=== PATIENT | male | born 1945 | race Caucasian/White ===

== ENCOUNTER 2018-01-16 04:08 | Observation (INO) | payer OTHER, MEDICARE ==
[~2018-01-16] VITALS: Ht 175.3 cm; Wt 110.2 kg
[~2018-01-16 04:08] MED LIST: ASPIRIN EC325 MG PO; BACTRIM,SEPT1 TABLET PO; BISACODYL5 MG PO; CELEXA20 MG PO; CIPRO500 MG PO; COLACE100 MG PO; COUMADIN1 MG PO; DOCUSATE SODIU100 MG PO; ECOTRIN325 MG PO; ENDOCET 5-3251 EACH PO; ESCITALOPRAM OX10 MG PO; EXELON PATCH9.5 MG TD; FLOMAX0.4 MG PO; GABAPENTIN600 MG PO; HYDROCHLOROTHIA25 MG PO; HYDROCODON-ACE1 EAC7 PO; IRON325 M1 PO; IRON325 MG PO; LEXAPRO10 MG PO; LISINOPRIL30 MG PO; NAMENDA XR28 MG PO; NEURONTIN600 MG PO; OXYCODONE-ACET1 EACH PO; PERCOCET 5/31 TABLET PO; PHENAZOPYRIDIN100 MG PO; POTASSIUM CHLO10 ME4 PO; POTASSIUM CHLO20 ME2 PO; PROSCAR5 MG PO; TAMSULOSIN HCL0.4 MG PO; TUMS500 MG PO; TYLENOL REGULA325 MG PO; XANAX XR1 MG PO; XANAX0.5 MG PO; XANAX1 MG PO
[2018-01-16 04:29] LABS: HEMATOCRIT 38.7 % (38.0-50.0); HEMOGLOBIN 14.3 G/DL (12.5-16.6); MCH 32.1 PG (29.0-34.0); PLATELET COUNT 170 K/uL (156-360); RBC DIS.WIDTH-SD 38.5 % (39-53); RED BLOOD COUNT 4.45 M/uL (4.00-5.50); WHITE BLOOD COUNT 4.9 K/uL (4.1-10.2)
[2018-01-16 04:41] LABS: CHLORIDE 100 mEq/L (99-109); POTASSIUM 3.8 mEq/L (3.7-5.4); SODIUM 137 mEq/L (136-147)
[2018-01-16 04:43] LABS: GLUCOSE 205 mg/dL (70-99)
[2018-01-16 04:46] LABS: GFR ESTIMATE (CALCULATED) > 59 mL/min/ (58.99-99999)
[2018-01-16 04:47] LABS: UREA NITROGEN (BUN) 9 mg/dL (9-23)
[2018-01-16 04:50] LABS: TROP-I INTERPRETATION NEGATIVE; TROPONIN-I < 0.01 ng/mL (0.0-0.30)
[2018-01-16 04:54] LABS: ALBUMIN 4.2 g/dL (3.2-4.8)
[2018-01-16 04:57] LABS: TOTAL PROTEIN 6.8 g/dL (6.4-8.3)
[2018-01-16 04:59] LABS: TOTAL BILIRUBIN 0.6 mg/dL (0.0-1.0)
[2018-01-16 05:00] LABS: ALKALINE PHOSPHATASE 136 IU/L (3-129)
[2018-01-16 05:02] LABS: AST (GOT) 32 IU/L (2-34); DIRECT BILIRUBIN 0.2 mg/dL (0.0-0.3)
[2018-01-16 05:03] LABS: ALT (GPT) 51 IU/L (3-49); LIPASE 22 U/L (1.0-51.0)
[2018-01-16] MEDS ORDERED: OXYCODONE-APAP1 EACH PO (06:15)
[2018-01-16] MEDS ORDERED: ALPRAZOLAM1 MG PO (06:16)
[2018-01-16 07:54] VITALS: BP 173/81
[2018-01-16 11:31] VITALS: BP 141/70
[2018-01-16] MEDS ORDERED: HYDROCHLOROTHIA25 MG PO (11:34)
[2018-01-16] MEDS ORDERED: MEMANTINE HCL10 MG PO (11:35)
[2018-01-16] MEDS ORDERED: ESCITALOPRAM OX20 MG PO (11:35)
[2018-01-16] MEDS ORDERED: EXELON6 MG PO (11:36)
[2018-01-16] MEDS ORDERED: LEXAPRO20 MG PO (11:41)
[2018-01-16 11:50] LABS: TROP-I INTERPRETATION NEGATIVE; TROPONIN-I < 0.01 ng/mL (0.0-0.30)
[2018-01-16 11:53] LABS: HDL CHOLESTEROL 29 MG/DL (Desirable>=40); LDL CHOLESTEROL 103 mg/dL (Desirable<100); NON-HDL CHOLESTEROL 161 mg/dL (Desirable<160); TOTAL CHOLESTEROL 190 mg/dL (Desirable<200); TRIGLYCERIDES 289 MG/DL (Normal: <150)
[2018-01-16] MEDS ORDERED: AUGMENTIN875 MG PO (14:10)
[2018-01-16] MEDS ORDERED: PROTONIX40 MG PO (14:10)
[2018-01-16 17:07] VITALS: BP 136/67
[2018-01-16 17:27] LABS: TROP-I INTERPRETATION NEGATIVE; TROPONIN-I < 0.01 ng/mL (0.0-0.30)
[2018-01-17 10:28] LABS: HEMOGLOBIN A1c (GLYCOHEMOGLOB) 6.8 % (Below 5.7)
== END 2018-01-16 18:16 | disposition home or self-care (01) ==
LOC: EME → EDBD 04:08 → EDOF 05:40 → ENRESERV 05:45 → 4SOUTH 07:30
PROVIDERS: Internal Medicine; Physician Assistant; Physician Assistant Medical
DX: R07.89 Other chest pain (principal); K21.9 Gastro-esophageal reflux disease without esophagitis; J69.0 Pneumonitis due to inhalation of food and vomit; R09.02 Hypoxemia; R73.9 Hyperglycemia, unspecified; K44.9 Diaphragmatic hernia without obstruction or gangrene; Z85.821 Personal history of Merkel cell carcinoma; N40.0 Benign prostatic hyperplasia without lower urinary tract symptoms; I10 Essential (primary) hypertension; F41.9 Anxiety disorder, unspecified; G89.29 Other chronic pain; G30.9 Alzheimer's disease, unspecified; F02.80 Dementia in other diseases classified elsewhere, unspecified severity, without behavioral disturbance, psychotic disturbance, mood disturbance, and anxiety; E66.9 Obesity, unspecified; Z68.35 Body mass index [BMI] 35.0-35.9, adult; Z86.19 Personal history of other infectious and parasitic diseases; Z87.891 Personal history of nicotine dependence; Z80.1 Family history of malignant neoplasm of trachea, bronchus and lung
CPT/HCPCS: 71045; 71275; 80048; 80061; 80076; 82948; 83036; 83690; 83735; 84484; 85027; 93005; 94640; 94799; 99281; 99285; G0378; J0295; J1644; J1815; J2930; J7030; J7050